=== PATIENT | female | born 1985 | race Hispanic/Latino ===

== ENCOUNTER 2019-03-15 14:43 | Emergency (ER) | payer BC ==
--- NOTE | 2019-03-15 15:06 | EDPHYS ---
Physician Documentation [facility] Name: Neris Ferguson Age: 33 yrs Sex: Female : 1985 Arrival Date: 03/15/2019 Time: 14:45 Bed 17 Private MD: Melissa Reyna K ED Physician Lonnie Coronel HPI: 03/15 15:02 This 33 yrs old Female presents to ER via Ambulatory with complaints of Ear jr8 Pain, Congestion. 15:02 The patient presents with pain, that is acute. The complaints affect the left ear. jr8 Onset: The symptoms/episode began/occurred today. Modifying factors: The symptoms are alleviated by nothing, the symptoms are aggravated by nothing. Associated signs and symptoms: The patient has no apparent associated signs or symptoms. Severity of symptoms: At their worst the symptoms were mild. The patient has experienced a previous episode. Pt reports URI sx for the last few days with fevers, today began having left ear pain. . 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 - Social history:: Smoking status: Patient/guardian denies using tobacco. - Ebola Screening: : Patient denies exposure to infectious person Patient denies travel to an Ebola-affected area in the 21 days before illness onset. ROS: 15:03 Constitutional: Negative for fever, chills, and weight loss, Eyes: Negative for injury, jr8 pain, redness, and discharge, Neck: Negative for injury, pain, and swelling, Cardiovascular: Negative for chest pain, palpitations, and edema, Respiratory: Negative for shortness of breath, cough, wheezing, and pleuritic chest pain, Abdomen/GI: Negative for abdominal pain, nausea, vomiting, diarrhea, and constipation, Back: Negative for injury and pain, MS/Extremity: Negative for injury and deformity, Neuro: Negative for headache, weakness, numbness, tingling, and seizure. 15:03 ENT: Positive for ear pain. Exam: 15:03 Constitutional: This is a well developed, well nourished patient who is awake, alert, jr8 and in no acute distress. Head/Face: Normocephalic, atraumatic. Eyes: Pupils equal round and reactive to light, extra-ocular motions intact. Lids and lashes normal. Conjunctiva and sclera are non-icteric and not injected. Cornea within normal limits. Periorbital areas with no swelling, redness, or edema. Neck: Trachea midline, no thyromegaly or masses palpated, and no cervical lymphadenopathy. Supple, full range of motion without nuchal rigidity, or vertebral point tenderness. No Meningismus. Chest/axilla: Normal chest wall appearance and motion. Nontender with no deformity. No lesions are appreciated. Cardiovascular: Regular rate and rhythm with a normal S1 and S2. No gallops, murmurs, or rubs. Normal PMI, no JVD. No pulse deficits. Respiratory: Lungs have equal breath sounds bilaterally, clear to auscultation and percussion. No rales, rhonchi or wheezes noted. No increased work of breathing, no retractions or nasal flaring. Abdomen/GI: Soft, non-tender, with normal bowel sounds. No distension or tympany. No guarding or rebound. No evidence of tenderness throughout. Back: No spinal tenderness. No costovertebral tenderness. Full range of motion. MS/ Extremity: Pulses equal, no cyanosis. Neurovascular intact. Full, normal range of motion. Neuro: Awake and alert, GCS 15, oriented to person, place, time, and situation. Cranial nerves II-XII grossly intact. Motor strength 5/5 in all extremities. Sensory grossly intact. Cerebellar exam normal. Normal gait. 15:03 ENT: TM's: bulging, erythema, on the left, Nose: is normal, Mouth: is normal, Posterior pharynx: is normal, Tonsils: are normal in appearance, Uvula: normal, swelling, is not appreciated, erythema, is not appreciated. Vital Signs: 14:54 BP 127 / 72; Pulse 83; Resp 16; Temp 98.7(TE); Pulse Ox 100% on R/A; Weight 103.42 kg; ss Height 5 ft. 5 in. (165.10 cm); Pain 10/10; 14:54 Body Mass Index 37.94 (103.42 kg, 165.10 cm) MDM: 14:49 Patient medically screened. jr8 15:04 Data reviewed: vital signs, nurses notes, and as a result, I will discharge patient. jr8 Data interpreted: Pulse oximetry: on room air is 100 %. Interpretation: normal. Counseling: I had a detailed discussion with the patient and/or guardian regarding: the historical points, exam findings, and any diagnostic results supporting the discharge/admit diagnosis. Administered Medications: No medications were administered Disposition: 15:40 Co-signature as Attending Physician, Lonnie Coronel MD. Disposition: 03/15/19 15:05 Discharged to Home. Impression: Acute serous otitis media. - Condition is Stable. - Prescriptions for Amoxicillin 875 mg Oral Tablet - take 1 tablet by ORAL route every 12 hours for 10 days; 20 tablet. - Medication Reconciliation Form, Thank You Letter, Antibiotic Education form. - Follow up: Private Physician; When: 2 - 3 days; Reason: Recheck today's complaints, Re-evaluation by your physician. - Problem is new. - Symptoms have improved. Signatures: Briana Perry RN RN Ralph Reyes PA PA jr8 Lonnie Coronel MD MD Kevin Rodriguez RN RN mg2 Corrections: (The following items were deleted from the chart) 15:14 15:05 03/15/2019 15:05 Discharged to Home. Impression: Acute serous otitis media. mg2 Condition is Stable. Forms are Medication Reconciliation Form, Thank You Letter, Antibiotic Education, Prescription Opioid Use. Follow up: Private Physician; When: 2 - 3 days; Reason: Recheck today's complaints, Re-evaluation by your physician. Problem is new. Symptoms have improved. jr8
--- NOTE | 2019-03-15 15:06 | ER ---
Nurse's Notes [facility] Name: Neris Ferguson Age: 33 yrs Sex: Female : 1985 Arrival Date: 03/15/2019 Time: 14:45 Bed 17 Private MD: Melissa Reyna K Diagnosis: Acute serous otitis media Presentation: 03/15 14:52 Presenting complaint: Patient states: congestion and L ear pain x 5 days. Denies fever/ ss cough. Transition of care: patient was not received from another setting of care. Onset of symptoms was March 09, 2019. Risk Assessment: Do you want to hurt yourself or someone else? Patient reports no desire to harm self or others. Initial Sepsis Screen: Does the patient meet any 2 criteria? No. Patient's initial sepsis screen is negative. Does the patient have a suspected source of infection? No. Patient's initial sepsis screen is negative. Care prior to arrival: None. 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 - Social history:: Smoking status: Patient/guardian denies using tobacco. - Ebola Screening: : Patient denies exposure to infectious person Patient denies travel to an Ebola-affected area in the 21 days before illness onset. Screenin:13 Abuse screen: Denies threats or abuse. Denies injuries from another. Nutritional mg2 screening: No deficits noted. Tuberculosis screening: No symptoms or risk factors identified. Fall Risk None identified. Assessment: 15:12 General: Appears in no apparent distress. comfortable, Behavior is calm, cooperative. mg2 Pain: Complains of pain in left ear Pain does not radiate. Neuro: Level of Consciousness is awake, alert, obeys commands, Oriented to person, place, time, situation. Cardiovascular: Capillary refill < 3 seconds Patient's skin is warm and dry. Respiratory: Reports nasal congestion Airway is patent Respiratory effort is even, unlabored, Respiratory pattern is regular, symmetrical. GI: No signs and/or symptoms were reported involving the gastrointestinal system. : No signs and/or symptoms were reported regarding the genitourinary system. EENT: Reports left ear pain. Derm: Skin is intact, is healthy with good turgor, Skin is pink, warm \T\ dry. normal. Musculoskeletal: Circulation, motion, and sensation intact. Capillary refill < 3 seconds. Vital Signs: 14:54 BP 127 / 72; Pulse 83; Resp 16; Temp 98.7(TE); Pulse Ox 100% on R/A; Weight 103.42 kg; ss Height 5 ft. 5 in. (165.10 cm); Pain 10/10; 14:54 Body Mass Index 37.94 (103.42 kg, 165.10 cm) ED Course: 14:45 Patient arrived in ED. as 14:45 Melissa Reyna MD is Private Physician. as 14:46 [facility]. jr8 14:46 Lonnie Coronel MD is Attending Physician. jr8 14:49 Kevin Rodriguez, KJ is Primary Nurse. mg2 14:53 Triage completed. ss 14:54 Arm band placed on right wrist. ss 15:13 Patient has correct armband on for positive identification. mg2 15:13 No provider procedures requiring assistance completed. Patient did not have IV access mg2 during this emergency room visit. Administered Medications: No medications were administered Outcome: 15:05 Discharge ordered by . jr8 15:14 Discharged to home ambulatory. mg2 15:14 Condition: stable 15:14 Discharge instructions given to patient, Instructed on discharge instructions, follow up and referral plans. medication usage, Demonstrated understanding of instructions, follow-up care, medications, Prescriptions given X 1. 15:14 Patient left the ED. mg2 Signatures: Adela Thomson Shelby, RN RN Ralph Reyes PA PA jr Kevin Rodriguez RN RN mg2
[2019-03-15 15:58] VITALS: BP 127/72; TEMP 98.7; O2SAT 100
== END 2019-03-15 15:14 | disposition home or self-care (01) ==
LOC: ER 14:43
DX: H65.00 Acute serous otitis media, unspecified ear (principal)
CPT/HCPCS: 99282

== ENCOUNTER 2022-06-09 18:48 | Emergency (ER) | payer OTHER ==
--- OUTSIDE RECORDS SUMMARY | 2022-06-09 18:53 | XMS REPORT | Continuity of Care Document ---
:1985 Author Organization [facility] t Address [address] [place] [address] Care Team Providers Name Role Phone STEVEN ALLISON Primary Care Physician Unavailable ERI NEAL Attending Clinician Unavailable Eri Neal MD Attending Clinician Doctor Unassigned, Independence Attending Clinician Unavailable EKHAESE, OBONORUMA IMARIA Attending Clinician Unavailable Ekhaese, Obonoruma Imariabe Attending Clinician EKHAESE, OBONORUMA IMARIA Admitting Clinician Unavailable Ekhaese, Obonoruma Imariabe Admitting Clinician [phone] Payers Payer Name Policy Type Policy Number Effective Date [facility] Date [id number] 2014 00:00:00 OUT OF STATE Problems Condition Condition Condition Status Onset Resolution Last Treating Co mments Source Name Details Category Date Date Treatment Clinician Date E66.01 E66.01 Diagnosis Active 2020-02-19 Me moria GASTRIC GASTRIC 01-06 09:11:00 l SLEEVE SLEEVE 00:00: [place] Active 00 01/07/2020 [place] UNK UNK Diagnosis Active 2020-01-16 Mem oria Active 01-06 14:01:00 l 01/07/2020 00:00: Garrett cervantes 00 [place] GASTRIC GASTRIC Diagnosis Active 2020-01-16 Memoria SLEEVE_ SLEEVE_ 8- 14:09:00 l Active 00:00: [place] 01/07/2020 00 [facility] E66.01 E66.01 Diagnosis Active 2019-10-31 Me moria Active 10-23 08:35:00 l 10/24/2019 00:00: Garrett cervantes 00 [facility] Abdominal Abdominal Disease Active Overview: Univers pain, pain, 6-07 Requested ity of other other 00:00: a pelvic [place] specified specified 00 ultrasoun M edical site site d Branch Gastroesop Gastroeso Problem Active 2020-01-23 Memoria hageal phageal 21:23:33 l reflux reflux Scout disease disease (disorder) (disorder) Active Problem 01/23/2020 [facility] Headache Headache Problem Active 2020-01-23 Memoria (finding) (finding) 21:23:33 l Active [place] Problem 01/23/2020 [facility] Morbid Morbid Problem Active 2020-01-23 Forrest karissa obesity obesity 21:23:33 l (disorder) (disorder) He rmann Active Problem 01/23/2020 [facility] Neck pain Neck pain Problem Active 2020-01-23 Memoria (finding) (finding) 21:23:33 l Active [place] Problem 01/23/2020 [facility] Sleep Sleep Problem Active 2020-01-23 Memor ia apnea apnea 21:23:33 l (finding) (finding) Herm jimmy Active Problem 01/23/2020 [facility] MORBID MORBID Diagnosis Active 2020-02-19 Me rosa (SEVERE) (SEVERE) 09:11:00 l OBESITY OBESITY Scout DUE TO DUE TO EXCESS CA EXCESS CA Active [facility] Morbid Morbid Problem 2020-01-23 Forrest karissa (severe) (severe) 21:23:33 l obesity obesity [place] due to due to excess excess calories calories 01/23/2020 [facility] Acute Acute Problem Resolve 2020-01-23 Forrest karissa asthma asthma d 21:23:33 l (disorder) (disorder) He rmann Resolved Problem 01/23/2020 [facility] Urinary Urinary Problem Active Common frequency frequency Spir it - [facility] Other Other Problem Active Common obesity obesity Spirit due to due to - [facility] excess excess St calories calories [facility] Well woman Well woman Problem Active C ommon exam with exam with Spir it routine routine - [facility]I gynecologi gynecologi St binh exam binh exam [facility] Acute Acute Problem Active Common vaginitis vaginitis Spir it - [facility] Abdominal Abdominal Problem Active Com mon pain, pain, Spirit unspecifie unspecifie - [facility] d d abdominal abdominal [facility] location location [facility] BMI BMI Problem Active Common 40.0-44.9, 40.0-44.9, Sp zachery adult adult [facility] Pelvic Pelvic Problem Active Common pain pain [facility] Allergies, Adverse Reactions, Alerts Allergy Allergy Status Severity Reaction(s) Onset Inactive Treating Comm ents Source Name Type Date Date Clinician NO KNOWN Drug Active Univers ALLERGIE Class ity of S [facility] Social History Social Habit Start Date Stop Date Quantity Comments Source Sex Assigned At [facility] y of [facility] Exposure to Not sure [facility] SARS-CoV-2 [facility] (event) Branch Tobacco use and 2020-07-09 2020-07-09 Never used Universit y of exposure 00:00:00 00:00:00 [facility] Alcohol intake 2020-07-09 2020-07-09 Current [facility] 00:00:00 00:00:00 non-drinker of [facility] alcohol Branch (finding) Social History 2020-01-20 2020-01-20 [facility] elizabeth 20:43:11 20:43:11 Smoking Status Start Date Stop Date Source Never smoker [facility] Medications Ordered Filled Start Stop Current Ordering Indication Dosage Frequency Signature Comments Components Source Medication Medication Date Date Medication? Clinician (SIG) Name Name Lactated 2019- No 1,000 mL, Forrest karissa Ringers 8-26 Rate: 80 l Injection 18:00: ml/hr, Garrett n IV 1,000 mL 00 Infuse over: 12.5 hr, Route: IV, Dosing Weight 113.273 kg, Total Volume: 1,000, Start date: 01/21/20 13:00:00 CDT, Duration: 30 day, Stop date: 02/20/20 12:59:00 CDT, 2.32, m2, 0 Lactated 2019- No 1,000 mL, Forrest karissa Ringers 8-26 Rate: 80 l Injection 18:00: ml/hr, Garrett n IV 1,000 mL 00 Infuse over: 12.5 hr, Route: IV, Dosing Weight 113.273 kg, Total Volume: 1,000, Start date: 01/21/20 13:00:00 CDT, Duration: 30 day, Stop date: 02/20/20 12:59:00 CDT, 2.32, m2, 0 Ondansetron 2020-0 Yes 4 mg = 1 Me moria 4 MG Oral 8-26 tab, PO, l Tablet 13:09: BID, # 10 Garrett n [Zofran] 00 tab, 0 Refill(s), Pharmacy: [id number], 165.1, cm, 01/20/20 15:41:00 CDT, Height, 109.545, kg, 01/20/20 15:41:00 CDT, Weight Ketorolac 2020-0 Yes 10 mg = 1 Mem oria Tromethamin 8-26 tab, PO, l e 10 MG 13:09: Q6H, X 5 Garrett n Oral Tablet 00 day, # 20 tab, 0 Refill(s), Pharmacy: [facility] #[id number], 165.1, cm, 01/20/20 15:41:00 CDT, Height, 109.545, kg, 01/20/20 15:41:00 CDT, Weight gabapentin 2020-0 Yes 100 mg = 1 M emoria 100 MG Oral 8-26 cap, PO, l Capsule 13:09: BID, PRN Garrett n 00 Pain Score 4-6, # 60 cap, 1 Refill(s), Pharmacy: [facility] #[id number], 165.1, cm, 01/20/20 15:41:00 CDT, Height, 109.545, kg, 01/20/20 15:41:00 CDT, Weight Ondansetron 2020-0 Yes 4 mg = 1 Me moria 4 MG Oral 8-26 tab, PO, l Tablet 13:09: BID, # 10 Garrett n [Zofran] 00 tab, 0 Refill(s), Pharmacy: [facility] #[id number], 165.1, cm, 01/20/20 15:41:00 CDT, Height, 109.545, kg, 01/20/20 15:41:00 CDT, Weight Ketorolac 2020-0 Yes 10 mg = 1 Mem oria Tromethamin 8-26 tab, PO, l e 10 MG 13:09: Q6H, X 5 Garrett n Oral Tablet 00 day, # 20 tab, 0 Refill(s), Pharmacy: [facility] #[id number], 165.1, cm, 01/20/20 15:41:00 CDT, Height, 109.545, kg, 01/20/20 15:41:00 CDT, Weight gabapentin Yes 100 mg = 1 M emoria 100 MG Oral 8- cap, PO, l Capsule 13:09: BID, PRN Garrett n 00 Pain Score 4-6, # 60 cap, 1 Refill(s), Pharmacy: [facility] #[id number], 165.1, cm, 01/20/20 15:41:00 CDT, Height, 109.545, kg, 01/20/20 15:41:00 CDT, Weight gabapentin No Notes: Memor ia - (Same as: l 18:00: Neurontin) [place] 00 Ketorolac 2019-0 Yes 4 days Memor ia 01-19 l 18:00: MEDICATION Scout 00 WASTE Product Size: 30 mg Product Wasted: ___ mg gabapentin 0 No Notes: Memor ia - (Same as: l 18:00: Neurontin) [place] 00 Ketorolac 2019-0 Yes 4 days Memor ia - l 18:00: MEDICATION Scout 00 WASTE Product Size: 30 mg Product Wasted: ___ mg Calcium 0 No 1,000 mL, Memor ia Chloride 01-19 Rate: 125 l 0.0014 17:51: ml/hr, Scout MEQ/ML / 00 Infuse Potassium over: 8 Chloride hr, Route: 0.004 IV, Dosing MEQ/ML / Weight Sodium 113.273 Chloride kg, Total 0.103 Volume: MEQ/ML / 1,000, Sodium Start Lactate date: 0.028 01/20/20 MEQ/ML 12:51:00 Injectable CDT, Stop Solution date: 01/21/20 12:59:00 CDT, 2.32, m2, 0 Acetaminoph 0 No Notes: Max Memoria en - acetaminop l 17:51: hen = 4000 Scout 00 mg/day (4 gm/day). (Same as: Tylenol) Hydromorpho No Notes: Forrest karissa ne 8-25 (Same as: l 17:51: Dilaudid) Ondansetron No Notes: Forrest karissa 8-25 (Same as: l 17:51: Zofran) [place] 00 MEDICATION WASTE Product Size: 4 mg Product Wasted: ___ mg Promethazin No Notes: Forrest karissa e 8-25 (Same as: l 17:51: Phenergan) [place] Calcium 2019-0 No 1,000 mL, Memor ia Chloride 01-19 Rate: 125 l 0.0014 17:51: ml/hr, [place] MEQ/ML / 00 Infuse Potassium over: 8 Chloride hr, Route: 0.004 IV, Dosing MEQ/ML / Weight Sodium 113.273 Chloride kg, Total 0.103 Volume: MEQ/ML / 1,000, Sodium Start Lactate date: 0.028 01/20/20 MEQ/ML 12:51:00 Injectable CDT, Stop Solution date: 01/21/20 12:59:00 CDT, 2.32, m2, 0 Acetaminoph No Notes: Max Memoria en 8-25 acetaminop l 17:51: hen = 4000 [place] 00 mg/day (4 gm/day). (Same as: Tylenol) Hydromorpho No Notes: Forrest karissa ne 8-25 (Same as: l 17:51: Dilaudid) Ondansetron No Notes: Forrest karissa 8-25 (Same as: l 17:51: Zofran) [place] 00 MEDICATION WASTE Product Size: 4 mg Product Wasted: ___ mg Promethazin 0 No Notes: Forrest karissa e 8-25 (Same as: l 17:51: Phenergan) Sodium 2019-0 No 984.8 mL, Memori a Chloride 825 Rate: 100 l 0.9% IV 17:49: ml/hr, Scout 984.8 mL + 00 Infuse M.V.I.-12 over: 10 10 mL Daily hr, Route: + folic IV, Dosing acid IV 1 Weight mg Daily + 113.273 thiamine IV kg, Total 5 Volume: 1,000, Start date: 01/20/20 12:49:00 CDT, Duration: 10 hr, Stop date: 01/20/20 22:48:00 CDT, 2.32, m2, 0 Sodium 2020-0 No 984.8 mL, Memori a Chloride 01-19 Rate: 100 l 0.9% IV 17:49: ml/hr, [place] 984.8 mL + 00 Infuse M.V.I.-12 over: 10 10 mL Daily hr, Route: + folic IV, Dosing acid IV 1 Weight mg Daily + 113.273 thiamine IV kg, Total 5 Volume: 1,000, Start date: 01/20/20 12:49:00 CDT, Duration: 10 hr, Stop date: 01/20/20 22:48:00 CDT, 2.32, m2, 0 72 HR 2020-0 No 1 patch, Memoria Scopolamine 01-19 Route: l 0.0139 16:14: TOP, Drug Garrett n MG/HR 00 Form: Transdermal ERFILM, Patch Dosing Weight 113.273, kg, ONCE, Start date: 01/20/20 11:14:00 CDT, Stop date: 01/20/20 11:14:00 CDT 72 HR 2020-0 No 1 patch, Memoria Scopolamine 01-19 Route: l 0.0139 16:14: TOP, Drug Garrett n MG/HR 00 Form: Transdermal ERFILM, Patch Dosing Weight 113.273, kg, ONCE, Start date: 01/20/20 11:14:00 CDT, Stop date: 01/20/20 11:14:00 CDT Lactated 2020-0 No 1,000 ml, Forrest karissa Ringers IV 01-19 Rate: 25 l 1,000 ml 16:03: ml/hr, [place] 00 Infuse over: 40 hr, Route: IV, Dosing Weight 113.273 kg, Total Volume: 1,000, Start date: 01/20/20 11:03:00 CDT, Duration: 30 day, Stop date: 02/19/20 11:02:00 CDT, 2.32, m2 Lactated 2020-0 No 1,000 ml, Forrest karissa Ringers IV 01-19 Rate: 25 l 1,000 ml 16:03: ml/hr, [place] 00 Infuse over: 40 hr, Route: IV, Dosing Weight 113.273 kg, Total Volume: 1,000, Start date: 01/20/20 11:03:00 CDT, Duration: 30 day, Stop date: 02/19/20 11:02:00 CDT, 2.32, m2 Calcium 2020-0 No 1,000 mL, Memor ia Chloride 8-24 Rate: 75 l 0.0014 22:32: ml/hr, Scout MEQ/ML / 00 Infuse Potassium over: 13.3 Chloride hr, Route: 0.004 IV, Dosing MEQ/ML / Weight Sodium 113.273 Chloride kg, Total 0.103 Volume: MEQ/ML / 1,000, Sodium Start Lactate date: 0.028 01/19/20 MEQ/ML 17:32:00 Injectable CDT, Solution Duration: 30 day, Stop date: 02/18/20 17:31:00 CDT, 2.32, m2 Fentanyl 2020-0 No 25 Memoria 8-24 microgram, l 22:32: Route: Scout 00 IVP, Q5Min, Dosing Weight 113.273, kg, PRN Pain Score 4-6, Priority: Routine, Start date: 01/19/20 17:32:00 CDT, Duration: 4 doses or times, Stop date: Limited # of times Flumazenil 2020-0 No 0.2 mg, Forrest karissa 8-24 Route: l 22:32: IVP, PRN, Dosing Weight 113.273, kg, PRN Benzodiaze pine Reversal, Initial dose, Start date: 01/19/20 17:32:00 CDT, Duration: 30 day, Stop date: 02/18/20 17:31:00 CDT Naloxone 2020-0 No 0.4 mg, Memori a 8-24 Route: l 22:32: IVP, Scout 00 Q2MIN, Dosing Weight 113.273, kg, PRN Narcotic Reversal, Start date: 01/19/20 17:32:00 CDT, Duration: 8 doses or times, Stop date: Limited # of times Ondansetron 2020-0 No 4 mg, Memor ia 8-24 Route: l 22:32: IVP, ONCE, Scout 00 Dosing Weight 113.273, kg, PRN Nausea & Vomiting, Start date: 01/19/20 17:32:00 CDT Calcium 2020-0 No 1,000 mL, Memor ia Chloride 8-24 Rate: 75 l 0.0014 22:32: ml/hr, Scout MEQ/ML / 00 Infuse Potassium over: 13.3 Chloride hr, Route: 0.004 IV, Dosing MEQ/ML / Weight Sodium 113.273 Chloride kg, Total 0.103 Volume: MEQ/ML / 1,000, Sodium Start Lactate date: 0.028 01/19/20 MEQ/ML 17:32:00 Injectable CDT, Solution Duration: 30 day, Stop date: 02/18/20 17:31:00 CDT, 2.32, m2 Fentanyl 2020-0 No 25 Memoria 8-24 microgram, l 22:32: Route: IVP, Q5Min, Dosing Weight 113.273, kg, PRN Pain Score 4-6, Priority: Routine, Start date: 01/19/20 17:32:00 CDT, Duration: 4 doses or times, Stop date: Limited # of times Flumazenil 2020-0 No 0.2 mg, Forrest karissa 824 Route: l 22:32: IVP, PRN, Dosing Weight 113.273, kg, PRN Benzodiaze pine Reversal, Initial dose, Start date: 01/19/20 17:32:00 CDT, Duration: 30 day, Stop date: 02/18/20 17:31:00 CDT Naloxone 2020-0 No 0.4 mg, Memori a 8-24 Route: l 22:32: IVP, Q2MIN, Dosing Weight 113.273, kg, PRN Narcotic Reversal, Start date: 01/19/20 17:32:00 CDT, Duration: 8 doses or times, Stop date: Limited # of times Ondansetron 2020-0 No 4 mg, Memor ia 8-24 Route: l 22:32: IVP, ONCE, Dosing Weight 113.273, kg, PRN Nausea & Vomiting, Start date: 01/19/20 17:32:00 CDT One-A-Day 2020-0 Yes 1 tab, PO, Me moria Women oral 8-21 Daily, # l tablet 23:05: 30 tab, 0 Garrett n 00 Refill(s) One-A-Day 2019-0 Yes 1 tab, PO, Me moria Women oral 8-21 Daily, # l tablet 23:05: 30 tab, 0 Garrett n 00 Refill(s) Womens One Womens One Yes Kate not Co mmon Daily Daily Trevor defined Spirit [facility] No known No [facility] No known No [facility] No known No Univers medications [facility] Immunizations Ordered Filled Immunization Date Status Comments [facility] e Immunization Name Name TD 2012-11-01 Completed University of 00:00:00 [facility] 2012-11-01 Completed [facility] 2012[facility]01 Completed University of 00:00:00 [facility] Influenza Virus 2010-06-11 Completed Universit y of Vaccine 00:00:00 [facility] Influenza Virus 2010-06-11 Completed Universit y of Vaccine 00:00:00 [facility] Influenza Virus 2010-06-11 Completed Universit y of Vaccine 00:00:00 [facility] Rubella 2010-02-16 Completed University of 00:00:00 [facility] Rubella 2010-02-16 Completed University of 00:00:00 [facility] Rubella 2010-02-16 Completed University of 00:00:00 [facility] Td 1999-05-28 Completed University of 00:00:00 [facility] Td 1999-05-28 Completed University of 00:00:00 [facility] Td 1999-05-28 Completed University of 00:00:00 [facility] Vital Signs Vital Name Observation Time Observation Value Comments Source Systolic blood 2020-07-09 17:27:00 123 mm[Hg] Univer sity of pressure [facility] Diastolic blood 2020-07-09 17:27:00 76 mm[Hg] Unive rsity of pressure [facility] Heart rate 2020-07-09 17:27:00 68 /min [facility] Body temperature 2020-07-09 17:27:00 36.78 Kenzie [facility] Respiratory rate 2020-07-09 17:27:00 18 /min [facility] Body height 2020-07-09 17:27:00 165.1 cm [facility] Body weight 2020-07-09 17:27:00 80.922 kg [facility] BMI 2020-07-09 17:27:00 29.69 kg/m2 [facility] Temperature Oral (F) 2020-01-21 04:47:00 98.0 F [facility] Heart Rate 2020-01-21 04:47:00 [facility] [place] Respitory Rate 2020-01-21 04:47:00 Memori al [place] Systolic (mm Hg) 2020-01-21 04:47:00 Forrest rial [place] Diastolic (mm Hg) 2020-01-21 04:47:00 Mem orial [place] Systolic (mm Hg) 2020-01-20 20:50:00 Forrest rial [place] Diastolic (mm Hg) 2020-01-20 20:50:00 Mem orial [place] Heart Rate 2020-01-20 20:50:00 [facility] [place] Respitory Rate 2020-01-20 20:50:00 Memori al [place] Height 2020-01-20 20:41:00 165.1 cm [facility] [place] Weight 2020-01-20 20:41:00 [facility] [place] BMI Calculated 2020-01-20 20:41:00 Memori al [place] Systolic (mm Hg) 2020-01-20 20:31:00 Forrest rial [place] Diastolic (mm Hg) 2020-01-20 20:31:00 Mem orial [place] Respitory Rate 2020-01-20 20:31:00 Memori al [place] Heart Rate 2020-01-20 20:31:00 [facility] Temperature Oral (F) 2020-01-20 19:20:00 97.7 F [facility] Height 2020-01-16 19:17:00 165.1 cm [facility] [place] Weight 2020-01-16 19:17:00 [facility] [place] BMI Calculated 2020-01-16 19:17:00 Memori al [place] Procedures Procedure Date / Time Performing Source Performed Clinician CONSENT/REFUSAL FOR DIAGNOSIS AND 2020-07-09 [facility] 16:39:40 Unassigned, No [facility] ASSIGNMENT OF BENEFITS 2020-07-09 Doctor [facility] 16:39:19 Unassigned, No [facility] section [facility] Esophagogastroduodenoscopy Memor ial [place] Encounters Start End Encounter Admission Attending Care Care Encounter Source Date/Time Date/Time Type Type Clinicians Facility Department ID 2022-04-26 Outpatient [facility] [id number] Common 09:17:00 [id number] [facility] 2022-04-03 Outpatient [facility] [id number] Common 11:37:00 [facility] 2021-07-12 2021-07-12 Outpatient R ADUM, [facility] [id number] Univers 10:00:00 10:00:00 ERI ity [facility] 2020-07-09 2020-07-09 Office Adum, [facility] [id number] Univers 10:40:14 12:15:41 Visit Eri Young [id number] ity [facility] [id number] Berenice bond Professio [phone] Mi dical [address] 2020-07-09 2020-07-09 Outpatient R ADUM, [facility] [id number] Univers 10:30:00 10:30:00 ERI gonzalez [facility] 2020-07-09 2020-07-09 Orders Doctor MILTON [id number] Univers 00:00:00 00:00:00 Only Unassigned, CHER [id number] ity [id number] Denilson as [id number] [address] 2020-01-20 2020-01-21 Inpatient [facility] [id number] Memoria 15:16:00 14:50:00 r Scout 01 [facility] 2020-01-20 2020-01-21 Inpatient [facility] [id number] Memoria 15:16:00 14:50:00 r Scout [address] [facility] 2020-01-20 2020-01-21 Inpatient CAROLA STAFFORD JOHANA [id number] 10:16:00 09:50:00 OBONORUMA Sout hea [facility] 2020-01-20 2020-01-21 Outpatient CAROLA Stafford [facility] [id number] 10:16:00 09:50:00 Obonor[place] 01 Imariabe 2020-01-20 2020-01-20 Outpatient CAROLA Stafford [id number] 12:00:00 12:00:00 [place] 01 Imariabe 2018-10-02 2018-10-02 Outpatient [facility] [id number] Common 09:45:00 09:45:00 t Specialty/U Sp zachery Specialty rology - [facility] 2018-06-05 2018-06-05 Outpatient [facility] [id number] Common 11:30:00 11:30:00 t [facility] 2017-10-23 2017-10-23 Outpatient [facility] [id number] Common 10:00:00 10:00:00 t [facility] - [facility] 2017-10-11 2017-10-11 Outpatient NICOLÁS MONZON [id number] Memoria 15:45:00 15:45:00 00 alex [place] 2017-10-11 2017-10-11 Outpatient NICOLÁS MONZON [id number] Memoria 15:45:00 15:45:00 00 alex [place] Results Test Description Test Time Test Comments Results Result Comments Source CHEM PANEL 2020-01-21 09:49:00 Test Item Value Reference Range Interpretation Comme nts eGFR (test code = eGFR) 123 [id number] 09:49:00 Test Item Value Reference Range Interpretation Comments WBC (test code = WBC) 11.5 3.7-10.4 [facility] [id number] 09:49:00 Test Item Value Reference Range Interpretation Comments RBC (test code = RBC) 4.29 4.20-5.40 [facility] [id number] 09:49:00 Test Item Value Reference Range Interpretation Comments Hgb (test code = Hgb) 11.5 12.0-16.0 [facility] [id number] 09:49:00 Test Item Value Reference Range Interpretation Comments Hct (test code = Hct) 34.5 36.0-48.0 [place] [id number] 09:49:00 Test Item Value Reference Range Interpretation Comments MCV (test code = MCV) 80.4 80.0-98.0 [place] [id number] 09:49:00 Test Item Value Reference Range Interpretation Comments MCH (test code = MCH) 26.7 pg 27.0-31.0 [place] [id number] 09:49:00 Test Item Value Reference Range Interpretation Comments MCHC (test code = MCHC) 33.3 32.0-36.0 [place] 27428-08-26 09:49:00 Test Item Value Reference Range Interpretation Comments RDW (test code = RDW) 15.6 11.5-14.5 [place] 27428-08-26 09:49:00 Test Item Value Reference Range Interpretation Comments Platelet (test code = Platelet) 310 133-450 [facility] [id number] 09:49:00 Test Item Value Reference Range Interpretation Comments MPV (test code = MPV) 7.1 7.4-10.4 [place] [id number] 09:49:00 Test Item Value Reference Range Interpretation Comments Segs (test code = Segs) 83.2 45.0-75.0 [place] [id number] 09:49:00 Test Item Value Reference Range Interpretation Comments Lymphocytes (test code = Lymphocytes) 11.5 20.0-40.0 [place] [id number] 09:49:00 Test Item Value Reference Range Interpretation Comments Monocytes (test code = Monocytes) 5.2 2.0-12.0 [place] 27428-08-26 09:49:00 Test Item Value Reference Range Interpretation Comments Basophils (test code = 0.1 See_Comment [Aut omated message] The Basophils) system which ge nerated this result tra nsmitted reference range : <=1.0. The reference r alvin was not used to int erpret this result as normal/abnormal . [place] [id number] 09:49:00 Test Item Value Reference Range Interpretation Comments Neutrophils # (test code = Neutrophils 9.5 1.5-8.1 #) [facility] [id number] 09:49:00 Test Item Value Reference Range Interpretation Comments Lymphocytes # (test code = Lymphocytes 1.3 1.0-5.5 #) [id number] 09:49:00 Test Item Value Reference Range Interpretation Comments Monocytes # (test code 0.6 See_Comment [Aut omated message] The = Monocytes #) system which generated this result tra nsmitted reference range : <=0.8. The reference r alvin was not used to int erpret this result as normal/abnormal . [facility]2020-08-26 09:49:00 Test Item Value Reference Range Interpretation Comments Glucose Lvl (test code = Glucose Lvl) 103 70-99 [place] [id number] 09:49:00 Test Item Value Reference Range Interpretation Comments BUN (test code = BUN) 9 7-22 [place] [id number] 09:49:00 Test Item Value Reference Range Interpretation Comments Creatinine Lvl (test code = Creatinine 0.52 0.50-1.40 Lvl) [place] [id number] 09:49:00 Test Item Value Reference Range Interpretation Comments Sodium Lvl (test code = Sodium Lvl) 141 135-145 [place] [address]81-08-26 09:49:00 Test Item Value Reference Range Interpretation Comments Potassium Lvl (test code = Potassium 3.9 3.5-5.1 Lvl) [place] 76781-08-26 09:49:00 Test Item Value Reference Range Interpretation Comments Chloride Lvl (test code = Chloride Lvl) 110 95-109 [place] [id number] 09:49:00 Test Item Value Reference Range Interpretation Comments CO2 (test code = CO2) 23 24-32 [place] [id number] 09:49:00 Test Item Value Reference Range Interpretation Comments Calcium Lvl (test code = Calcium Lvl) 8.7 8.5-10.5 [place] 671470-08-26 09:49:00 Test Item Value Reference Range Interpretation Comments Total Protein (test code = Total 6.9 6.4-8.4 Protein) [place] 671470-08-26 09:49:00 Test Item Value Reference Range Interpretation Comments Albumin Lvl (test code = Albumin Lvl) 3.2 3.5-5.0 [facility] [employer] [id number] 09:49:00 Test Item Value Reference Range Interpretation Comments ALT (test code = ALT) 79 See_Comment [Auto mated message] The system which ge nerated this result transmit nicole reference range : <=65. The reference range was not used to interpr et this result as jonathan l/abnormal. [facility] [employer]2020-08-26 09:49:00 Test Item Value Reference Range Interpretation Comments AST (test code = AST) 59 See_Comment [Auto mated message] The system which ge nerated this result transmit nicole reference range : <=37. The reference range was not used to interpr et this result as jonathan l/abnormal. [employer]2020-08-26 09:49:00 Test Item Value Reference Range Interpretation Comments Alk Phos (test code = Alk Phos) 62 39-136 [facility] [employer] [id number] 09:49:00 Test Item Value Reference Range Interpretation Comments Bili Total (test code = Bili Total) 0.4 0.2-1.3 [facility] [employer]2020-08-26 09:49:00 Test Item Value Reference Range Interpretation Comments AGAP (test code = AGAP) 11.9 10.0-20.0 [employer]2020-08-26 09:49:00 Test Item Value Reference Range Interpretation Comments B/C Ratio (test code = B/C Ratio) 17 1 6-25 [facility] [employer]2020-08-26 09:49:00 Test Item Value Reference Range Interpretation Comments Globulin (test code = Globulin) 3.7 2.7-4.2 [facility] [employer]2020-08-26 09:49:00 Test Item Value Reference Range Interpretation Comments A/G Ratio (test code = A/G Ratio) 0.9 1 0.7-1.6 [employer]2020-08-26 09:49:00 Test Item Value Reference Range Interpretation Comments eGFR (test code = eGFR) 123 [facility] LvzlzlhEAGIWZKZTG5007-97-00 09:49:00 Test Item Value Reference Range Interpretation Comments WBC (test code = WBC) 11.5 3.7-10.4 [facility] KzjwpfqYAOZLEPWKR3050-04-54 09:49:00 Test Item Value Reference Range Interpretation Comments RBC (test code = RBC) 4.29 4.20-5.40 [place] 394800-08-26 09:49:00 Test Item Value Reference Range Interpretation Comments Hgb (test code = Hgb) 11.5 12.0-16.0 [place] [address]-08-26 09:49:00 Test Item Value Reference Range Interpretation Comments Hct (test code = Hct) 34.5 36.0-48.0 [facility] TaylorDmutrvzSTAULMXNGM2427-25-68 09:49:00 Test Item Value Reference Range Interpretation Comments MCV (test code = MCV) 80.4 80.0-98.0 [facility] TaylorFhcmcbbZLERDHCRXZ4583-30-25 09:49:00 Test Item Value Reference Range Interpretation Comments MCH (test code = MCH) 26.7 pg 27.0-31.0 [place] 394800-08-26 09:49:00 Test Item Value Reference Range Interpretation Comments MCHC (test code = MCHC) 33.3 32.0-36.0 [facility] TaylorBkxtmokWKSCABFJHS1025-43-09 09:49:00 Test Item Value Reference Range Interpretation Comments RDW (test code = RDW) 15.6 11.5-14.5 [facility] TaylorZvjbksnSAASLRGKRG8952-83-93 09:49:00 Test Item Value Reference Range Interpretation Comments Platelet (test code = Platelet) 310 133-450 [facility] TaylorYvkdmijYBVNIESYIT3314-06-29 09:49:00 Test Item Value Reference Range Interpretation Comments MPV (test code = MPV) 7.1 7.4-10.4 [place] 394800-08-26 09:49:00 Test Item Value Reference Range Interpretation Comments Segs (test code = Segs) 83.2 45.0-75.0 [place] 394800-08-26 09:49:00 Test Item Value Reference Range Interpretation Comments Lymphocytes (test code = Lymphocytes) 11.5 20.0-40.0 [place] [address]-08-26 09:49:00 Test Item Value Reference Range Interpretation Comments Monocytes (test code = Monocytes) 5.2 2.0-12.0 [place] [address]-08-26 09:49:00 Test Item Value Reference Range Interpretation Comments Basophils (test code = 0.1 See_Comment [Aut omated message] The Basophils) system which ge nerated this result tra nsmitted reference range : <=1.0. The reference r alvin was not used to int erpret this result as normal/abnormal . [place] 394800-08-26 09:49:00 Test Item Value Reference Range Interpretation Comments Neutrophils # (test code = Neutrophils 9.5 1.5-8.1 #) [place] 394800-08-26 09:49:00 Test Item Value Reference Range Interpretation Comments Lymphocytes # (test code = Lymphocytes 1.3 1.0-5.5 #) [place] [address]-08-26 09:49:00 Test Item Value Reference Range Interpretation Comments Monocytes # (test code 0.6 See_Comment [Aut omated message] The = Monocytes #) system which generated this result tra nsmitted reference range : <=0.8. The reference r alvin was not used to int erpret this result as normal/abnormal . [facility] [id number] 09:49:00 Test Item Value Reference Range Interpretation Comments Glucose Lvl (test code = Glucose Lvl) 103 70-99 [facility] [id number] 09:49:00 Test Item Value Reference Range Interpretation Comments BUN (test code = BUN) 9 7-22 [facility] [id number] 09:49:00 Test Item Value Reference Range Interpretation Comments Creatinine Lvl (test code = Creatinine 0.52 0.50-1.40 Lvl) [facility] [id number] 09:49:00 Test Item Value Reference Range Interpretation Comments Sodium Lvl (test code = Sodium Lvl) 141 135-145 [facility] [id number] 09:49:00 Test Item Value Reference Range Interpretation Comments Potassium Lvl (test code = Potassium 3.9 3.5-5.1 Lvl) [facility] [id number] 09:49:00 Test Item Value Reference Range Interpretation Comments Chloride Lvl (test code = Chloride Lvl) 110 95-109 [facility] [id number] 09:49:00 Test Item Value Reference Range Interpretation Comments CO2 (test code = CO2) 23 24-32 [facility] [id number] 09:49:00 Test Item Value Reference Range Interpretation Comments Calcium Lvl (test code = Calcium Lvl) 8.7 8.5-10.5 [facility] [id number] 09:49:00 Test Item Value Reference Range Interpretation Comments Total Protein (test code = Total 6.9 6.4-8.4 Protein) [facility] [id number] 09:49:00 Test Item Value Reference Range Interpretation Comments Albumin Lvl (test code = Albumin Lvl) 3.2 3.5-5.0 [facility] [id number] 09:49:00 Test Item Value Reference Range Interpretation Comments ALT (test code = ALT) 79 See_Comment [Auto mated message] The system which ge nerated this result transmit nicole reference range : <=65. The reference range was not used to interpr et this result as jonathan l/abnormal. [facility] [id number] 09:49:00 Test Item Value Reference Range Interpretation Comments AST (test code = AST) 59 See_Comment [Auto mated message] The system which ge nerated this result transmit nicole reference range : <=37. The reference range was not used to interpr et this result as jonathan l/abnormal. [facility] [employer] [id number] 09:49:00 Test Item Value Reference Range Interpretation Comments Alk Phos (test code = Alk Phos) 62 39-136 [facility] [id number] 09:49:00 Test Item Value Reference Range Interpretation Comments Bili Total (test code = Bili Total) 0.4 0.2-1.3 [facility] [id number] 09:49:00 Test Item Value Reference Range Interpretation Comments AGAP (test code = AGAP) 11.9 10.0-20.0 [facility] [employer] [id number] 09:49:00 Test Item Value Reference Range Interpretation Comments B/C Ratio (test code = B/C Ratio) 17 1 6-25 [facility] [id number] 09:49:00 Test Item Value Reference Range Interpretation Comments Globulin (test code = Globulin) 3.7 2.7-4.2 [facility] [employer] [id number] 09:49:00 Test Item Value Reference Range Interpretation Comments A/G Ratio (test code = A/G Ratio) 0.9 1 0.7-1.6 [facility]2020-08-25 15:22:00 Test Item Value Reference Range Interpretation Comments U Preg (test code = U Negative (01/20/20 10:22 Preg) AM) [facility]2020-08-25 15:22:00 Test Item Value Reference Range Interpretation Comments U Preg (test code = U Negative (01/20/20 10:22 Preg) AM) [facility] [id number] 19:55:00 Test Item Value Reference Range Interpretation Comments Neutrophils # (test code = Neutrophils 6.6 1.5-8.1 #) [facility] TaylorKdtsuhmCWXISIFQVT2396-76-47 19:55:00 Test Item Value Reference Range Interpretation Comments Lymphocytes # (test code = Lymphocytes 2.1 1.0-5.5 #) [facility] TaylorZtmskmcIAYQJFFXWG5235-62-01 19:55:00 Test Item Value Reference Range Interpretation Comments Monocytes # (test code 0.5 See_Comment [Aut omated message] The = Monocytes #) system which generated this result tra nsmitted reference range : <=0.8. The reference r alvin was not used to int erpret this result as normal/abnormal . [facility] [id number] 19:55:00 Test Item Value Reference Range Interpretation Comments Eosinophils # (test code 0.2 See_Comment [A utomated message] The = Eosinophils #) system whic h generated this result tra nsmitted reference range : <=0.5. The reference r alvin was not used to int erpret this result as normal/abnormal . [facility] TaylorMltclxaOYXSEAHYJB4523-22-73 19:55:00 Test Item Value Reference Range Interpretation Comments Basophils # (test code 0.1 See_Comment [Aut omated message] The = Basophils #) system which generated this result tra nsmitted reference range : <=0.2. The reference r alvin was not used to int erpret this result as normal/abnormal . [facility] HospitalMipiszkVSKBHYASAJ4926-18-12 19:55:00 Test Item Value Reference Range Interpretation Comments Coronavirus (COVID-19) Not Detected ARUN (test code = *NA*(01/16/20 2:55 PM) Coronavirus (COVID-19) ARUN) [facility] [id number] 19:55:00 Test Item Value Reference Range Interpretation Comments ABO/Rh (test code = ABO/Rh) B POS [facility] [employer] [facility] [id number] 19:55:00 Test Item Value Reference Range Interpretation Comments Antibody Scrn (test Negative (01/16/20 2:55 code = Antibody Scrn) PM) [facility] [id number] 19:55:00 Test Item Value Reference Range Interpretation Comments Glucose Lvl (test code = Glucose Lvl) 121 70-99 [facility] [id number] 19:55:00 Test Item Value Reference Range Interpretation Comments BUN (test code = BUN) 10 7-22 [facility] [id number] 19:55:00 Test Item Value Reference Range Interpretation Comments Creatinine Lvl (test code = Creatinine 0.62 0.50-1.40 Lvl) [facility] [id number] 19:55:00 Test Item Value Reference Range Interpretation Comments Sodium Lvl (test code = Sodium Lvl) 138 135-145 [facility] [id number] 19:55:00 Test Item Value Reference Range Interpretation Comments Potassium Lvl (test code = Potassium 3.5 3.5-5.1 Lvl) [facility] [id number] 19:55:00 Test Item Value Reference Range Interpretation Comments Chloride Lvl (test code = Chloride Lvl) 104 95-109 [facility] [id number] 19:55:00 Test Item Value Reference Range Interpretation Comments CO2 (test code = CO2) 27 24-32 [facility] [id number] 19:55:00 Test Item Value Reference Range Interpretation Comments Calcium Lvl (test code = Calcium Lvl) 8.9 8.5-10.5 [facility] [id number] 19:55:00 Test Item Value Reference Range Interpretation Comments AGAP (test code = AGAP) 10.5 10.0-20.0 [facility] [id number] 19:55:00 Test Item Value Reference Range Interpretation Comments eGFR (test code = eGFR) 116 [facility] TaylorXipxtctQOQSVMHUXC7827-53-53 19:55:00 Test Item Value Reference Range Interpretation Comments WBC (test code = WBC) 9.5 3.7-10.4 [facility] T[id number] 19:55:00 Test Item Value Reference Range Interpretation Comments RBC (test code = RBC) 4.69 4.20-5.40 [facility] [id number] 19:55:00 Test Item Value Reference Range Interpretation Comments Hgb (test code = Hgb) 12.3 12.0-16.0 [facility] TaylorSvimyvwSOSYWTTKZQ5469-27-16 19:55:00 Test Item Value Reference Range Interpretation Comments Hct (test code = Hct) 37.7 36.0-48.0 [facility] TaylorEezqqblESLAPWPQRI9851-41-51 19:55:00 Test Item Value Reference Range Interpretation Comments MCV (test code = MCV) 80.4 80.0-98.0 [facility] TaylorJfsghglMGCVBEVRDV6224-87-18 19:55:00 Test Item Value Reference Range Interpretation Comments MCH (test code = MCH) 26.2 pg 27.0-31.0 [facility] TaylorPnkezhlDMDAFKBLOE3831-10-68 19:55:00 Test Item Value Reference Range Interpretation Comments MCHC (test code = MCHC) 32.6 32.0-36.0 [facility] [id number] 19:55:00 Test Item Value Reference Range Interpretation Comments RDW (test code = RDW) 15.7 11.5-14.5 [facility] TaylorHhzxqxfAEVJRLSKWT7916-27-80 19:55:00 Test Item Value Reference Range Interpretation Comments Platelet (test code = Platelet) 308 133-450 [facility] TaylorMioumeoNEOKWFSGZS4515-18-05 19:55:00 Test Item Value Reference Range Interpretation Comments MPV (test code = MPV) 7.1 7.4-10.4 [place] 394800-08-21 19:55:00 Test Item Value Reference Range Interpretation Comments Segs (test code = Segs) 69.6 45.0-75.0 [place] 394800-08-21 19:55:00 Test Item Value Reference Range Interpretation Comments Lymphocytes (test code = Lymphocytes) 22.4 20.0-40.0 [facility] TaylorEhbpsnaEGVYPZIFBQ3296-12-85 19:55:00 Test Item Value Reference Range Interpretation Comments Monocytes (test code = Monocytes) 5.5 2.0-12.0 [place] 394800-08-21 19:55:00 Test Item Value Reference Range Interpretation Comments Eosinophils (test code = 1.8 See_Comment [A utomated message] The Eosinophils) system which ge nerated this result tra nsmitted reference range : <=4.0. The reference r alvin was not used to int erpret this result as normal/abnormal . [facility] T[id number] 19:55:00 Test Item Value Reference Range Interpretation Comments Basophils (test code = 0.7 See_Comment [Aut omated message] The Basophils) system which ge nerated this result tra nsmitted reference range : <=1.0. The reference r alvin was not used to int erpret this result as normal/abnormal . [facility] TaylorAstxckhOTKGXMYUHK8812-86-57 19:55:00 Test Item Value Reference Range Interpretation Comments Basophils (test code = 0.7 See_Comment [Aut omated message] The Basophils) system which ge nerated this result tra nsmitted reference range : <=1.0. The reference r alvin was not used to int erpret this result as normal/abnormal . [facility] TaylorEmkitazMOVDEICOBJ6688-78-80 19:55:00 Test Item Value Reference Range Interpretation Comments Neutrophils # (test code = Neutrophils 6.6 1.5-8.1 #) [facility] TaylorHuvilqyGHMUPDUXDL0309-64-55 19:55:00 Test Item Value Reference Range Interpretation Comments Lymphocytes # (test code = Lymphocytes 2.1 1.0-5.5 #) [facility] TaylorDbwkevxCCWLWZTIJP3981-58-14 19:55:00 Test Item Value Reference Range Interpretation Comments Monocytes # (test code 0.5 See_Comment [Aut omated message] The = Monocytes #) system which generated this result tra nsmitted reference range : <=0.8. The reference r alvin was not used to int erpret this result as normal/abnormal . [facility] TaylorGpgjmmtQMRBVTVJCS9115-47-79 19:55:00 Test Item Value Reference Range Interpretation Comments Eosinophils # (test code 0.2 See_Comment [A utomated message] The = Eosinophils #) system whic h generated this result tra nsmitted reference range : <=0.5. The reference r alvin was not used to int erpret this result as normal/abnormal . [facility] TaylorJqvtvkpQZHUVMBJXG6732-92-52 19:55:00 Test Item Value Reference Range Interpretation Comments Basophils # (test code 0.1 See_Comment [Aut omated message] The = Basophils #) system which generated this result tra nsmitted reference range : <=0.2. The reference r alvin was not used to int erpret this result as normal/abnormal . [facility] FaxhxydZRGYWLEDND2407-54-89 19:55:00 Test Item Value Reference Range Interpretation Comments Coronavirus (COVID-19) Not Detected ARUN (test code = *NA*(01/16/20 2:55 PM) Coronavirus (COVID-19) ARUN) [facility] [employer] [id number] 19:55:00 Test Item Value Reference Range Interpretation Comments ABO/Rh (test code = ABO/Rh) B POS [facility] [employer] [id number] 19:55:00 Test Item Value Reference Range Interpretation Comments Antibody Scrn (test Negative (01/16/20 2:55 code = Antibody Scrn) PM) [facility] [employer]2020-08-21 19:55:00 Test Item Value Reference Range Interpretation Comments Glucose Lvl (test code = Glucose Lvl) 121 70-99 [facility] [employer]2020-08-21 19:55:00 Test Item Value Reference Range Interpretation Comments BUN (test code = BUN) 10 7-22 [facility] [employer]2020-08-21 19:55:00 Test Item Value Reference Range Interpretation Comments Creatinine Lvl (test code = Creatinine 0.62 0.50-1.40 Lvl) [facility] [employer]2020-08-21 19:55:00 Test Item Value Reference Range Interpretation Comments Sodium Lvl (test code = Sodium Lvl) 138 135-145 [facility] [employer]2020-08-21 19:55:00 Test Item Value Reference Range Interpretation Comments Potassium Lvl (test code = Potassium 3.5 3.5-5.1 Lvl) [employer]2020-08-21 19:55:00 Test Item Value Reference Range Interpretation Comments Chloride Lvl (test code = Chloride Lvl) 104 95-109 [facility] [employer] [id number] 19:55:00 Test Item Value Reference Range Interpretation Comments CO2 (test code = CO2) 27 24-32 [employer]2020-08-21 19:55:00 Test Item Value Reference Range Interpretation Comments Calcium Lvl (test code = Calcium Lvl) 8.9 8.5-10.5 [facility]2020-08-21 19:55:00 Test Item Value Reference Range Interpretation Comments AGAP (test code = AGAP) 10.5 10.0-20.0 [facility]2020-08-21 19:55:00 Test Item Value Reference Range Interpretation Comments eGFR (test code = eGFR) 116 [facility] TaylorVcowthtBBWSVNWIGZ8193-52-28 19:55:00 Test Item Value Reference Range Interpretation Comments WBC (test code = WBC) 9.5 3.7-10.4 [place] 394800-08-21 19:55:00 Test Item Value Reference Range Interpretation Comments RBC (test code = RBC) 4.69 4.20-5.40 [place] 394800-08-21 19:55:00 Test Item Value Reference Range Interpretation Comments Hgb (test code = Hgb) 12.3 12.0-16.0 [place] [address]-08-21 19:55:00 Test Item Value Reference Range Interpretation Comments Hct (test code = Hct) 37.7 36.0-48.0 [place] [address]-08-21 19:55:00 Test Item Value Reference Range Interpretation Comments MCV (test code = MCV) 80.4 80.0-98.0 [place] [address]-08-21 19:55:00 Test Item Value Reference Range Interpretation Comments MCH (test code = MCH) 26.2 pg 27.0-31.0 [place] 394800-08-21 19:55:00 Test Item Value Reference Range Interpretation Comments MCHC (test code = MCHC) 32.6 32.0-36.0 [place] [address]-08-21 19:55:00 Test Item Value Reference Range Interpretation Comments RDW (test code = RDW) 15.7 11.5-14.5 [place] 394800-08-21 19:55:00 Test Item Value Reference Range Interpretation Comments Platelet (test code = Platelet) 308 133-450 [facility] TaylorPjmnlwaQXHJJRFBIF9461-78-77 19:55:00 Test Item Value Reference Range Interpretation Comments MPV (test code = MPV) 7.1 7.4-10.4 [facility] TaylorSiaamhmJZWDMGKHJZ4836-68-76 19:55:00 Test Item Value Reference Range Interpretation Comments Segs (test code = Segs) 69.6 45.0-75.0 [facility] TaylorIvaaykkQYKDTAACOS3843-07-35 19:55:00 Test Item Value Reference Range Interpretation Comments Lymphocytes (test code = Lymphocytes) 22.4 20.0-40.0 [facility] TaylorYyirffmRMHFGRNFSP1918-39-91 19:55:00 Test Item Value Reference Range Interpretation Comments Monocytes (test code = Monocytes) 5.5 2.0-12.0 [facility] TaylorOzhvmctNPQPZLZFZA6628-85-43 19:55:00 Test Item Value Reference Range Interpretation Comments Eosinophils (test code = 1.8 See_Comment [A utomated message] The Eosinophils) system which ge nerated this result tra nsmitted reference range : <=4.0. The reference r alvin was not used to int erpret this result as normal/abnormal . [facility]
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
[2022-06-09 22:22] VITALS: TEMP 98.4
[2022-06-09 22:28] VITALS: BP 117/78; O2SAT 99
== END 2022-06-09 22:08 | disposition home or self-care (01) ==
LOC: ER 18:48
DX: S39.012A Strain of muscle, fascia and tendon of lower back, initial encounter (principal); S16.1XXA Strain of muscle, fascia and tendon at neck level, initial encounter
CPT/HCPCS: 72100; 72125; 99283

== ENCOUNTER 2023-06-23 18:36 | Inpatient (IN) | payer BC ==
[2023-06-23 20:25] LABS: Absolute Lymphocytes (CBC) 0.5 K/uL (0.7-4.9); MCV 77.1 fL (80-100)
[2023-06-23 20:28] LABS: Specific Gravity 1.029 (1.005-1.030); Urine Bacteria None Seen /HPF (<20); Urine Bilirubin NEGATIVE (Negative); Urine Blood Negative (Negative); Urine Clarity Clear (Clear); Urine Color Yellow (Yellow); Urine Glucose NEGATIVE (Negative); Urine Mucus 3+ /HPF (None Seen); Urine Protein 1+ (Negative); Urine Urobilinogen 2+ (Normal); Urine pH 6.5 (5.0-7.0)
[2023-06-23] MEDS ORDERED: MORPHINE 4 MG/ML SYR ONE (20:30)
[2023-06-23] MEDS ORDERED: ONDANSETRON 4 MG/2 ML VIAL ONE (20:30)
[2023-06-23] MEDS ORDERED: NA CHLORIDE 0.9% 1,000 ML ONE (20:31)
[2023-06-23 20:48] LABS: Hematocrit 37.1 % (36.0-45.0); Lymphocytes % 4.9 % (15.3-44.8); Platelets 239 thou/uL (152-406); RBC Red Blood Cell Count 4.82 M/uL (3.86-4.86)
[2023-06-23 20:49] LABS: Bilirubin Total 1.7 mg/dL (0.2-1.0); Potassium 3.6 mEq/L (3.5-5.1); Protein, Total 7.9 g/dL (6.4-8.2)
[2023-06-23 21:47] LABS: Blood Morphology Comment NOT SEEN (NOT SEEN); Platelet Estimate ADEQ; White Blood Cell Scan OK (OK)
--- NOTE | 2023-06-24 00:51 | ER ---
Nurse's Notes [facility] Name: Neris Ferguson Age: 37 yrs Sex: Female : 1985 Arrival Date: 06/23/2023 Time: 18:36 Bed 8 Private MD: Diagnosis: Abnormal results of liver function studies;Calculus of gallbladder without cholecystitis Presentation: 06/23 18:57 Chief complaint: Patient states: right sided abdominal pain that radiates to shoulder. as6 Coronavirus screen: At this time, the client does not indicate any symptoms associated with coronavirus-19. Ebola Screen: No symptoms or risks identified at this time. Initial Sepsis Screen: Does the patient meet any 2 criteria? No. Patient's initial sepsis screen is negative. Does the patient have a suspected source of infection? No. Patient's initial sepsis screen is negative. Risk Assessment: Do you want to hurt yourself or someone else? Patient reports no desire to harm self or others. Onset of symptoms was June 23, 2023. 18:57 Method Of Arrival: Ambulatory as6 18:57 Acuity: YOKO 3 as6 Triage Assessment: 19:50 General: Appears uncomfortable, Behavior is calm, cooperative, appropriate for age. la4 19:50 Neuro: No deficits noted. Level of Consciousness is awake, alert, obeys commands, la4 Oriented to person, place, time, Appropriate for age. Cardiovascular: Heart tones S1 S2 Capillary refill < 3 seconds is brisk fingers Patient's skin is warm and dry. Rhythm is sinus rhythm. Respiratory: Airway Breath sounds are clear. GI: Abdomen is flat, non-distended, Bowel sounds present X 4 quads. Reports lower abdominal pain, upper abdominal pain, nausea, vomiting. 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 - Social history:: Smoking status: Patient denies any tobacco usage or history of. Screenin:50 [facility] ED Fall Risk Assessment (Adult) History of falling in the last 3 months, la4 including since admission No falls in past 3 months (0 pts) Confusion or Disorientation No (0 pts) Intoxicated or Sedated No (0 pts) Impaired Gait No (0 pts) Mobility Assist Device Used No (0 pt) Altered Elimination No (0 pt) Score/Fall Risk Level 0 - 2 = Low Risk. Abuse screen: Denies threats or abuse. Denies injuries from another. Nutritional screening: No deficits noted. Tuberculosis screening: No symptoms or risk factors identified. Assessment: 19:50 Reassessment: Patient and/or family updated on plan of care and expected duration. Pain la4 level reassessed. PT assisted to bathroom. Urine collected. Blood drawn. Placed in gown and on cardiac, BP and SPO2 monitoring. No medication ordered at this time. Pt updated to plan of care. Jp MEADOWS notified of pt continued Right arm pain and abdominal pain. Pain: Complains of pain in right upper quadrant and left lower quadrant Pain does not radiate. Pain currently is 9 out of 10 on a pain scale. Quality of pain is described as sharp, Pain began 2 hours ago. Is continuous. Neuro: No deficits noted. Garcia Agitation-Sedation Scale (RASS): 0 - Alert and Calm Level of Consciousness is awake, alert, obeys commands, Oriented to person, place, time, situation, Appropriate for age. Cardiovascular: Reports burning in bilateral chest /chest pain that radiates to right shoulder and down right arm Heart tones S1 S2 Capillary refill < 3 seconds is brisk fingers Patient's skin is warm and dry. Rhythm is sinus rhythm. Respiratory: No deficits noted. Airway is patent Trachea midline Respiratory effort is even, unlabored, Respiratory pattern is regular, symmetrical, Breath sounds are clear bilaterally. GI: Abdomen is flat, non-distended, Bowel sounds present X 4 quads. Abd is soft Abdomen is tender to palpation in suprapubic area, right upper quadrant and left lower quadrant reports last BM this am to be large, soft, and normal in size. 20:43 Reassessment: No changes from previously documented assessment. Patient is alert, la4 oriented x 3, equal unlabored respirations, skin warm/dry/pink. CT called and notified pt completed Oral contrast at this time. Medicated for pain and IVF started to PIV, will continue to monitor. 21:40 Reassessment: Patient and/or family updated on plan of care and expected duration. Pain la4 level reassessed. Patient is alert, oriented x 3, equal unlabored respirations, skin warm/dry/pink. Reports pain has improved and notified that she will be taken to complete her CT at 1045pm. Verbalized understanding of plan of care Patient states feeling better. Vital Signs: 18:57 BP 123 / 66; Pulse 85; Resp 18 S; Temp 98.3(O); Pulse Ox 100% on R/A; Weight 68.04 kg as6 (R); Height 5 ft. 5 in. (R); Pain 10/10; 20:00 BP 110 / 67; Pulse 76; Resp 18; Pulse Ox 100% on R/A; la4 20:30 BP 127 / 87; Pulse 70; Resp 18; Pulse Ox 100% ; la4 21:39 BP 109 / 58; Pulse 82; Resp 18; Pulse Ox 100% on R/A; Pain 6/10; la4 22:00 BP 109 / 77; Pulse 70; Pulse Ox 100% on R/A; nw1 23:30 BP 93 / 71; Pulse 64; Pulse Ox 100% on R/A; nw1 06/24 00:00 BP 109 / 75; Pulse 65; Resp 16; Pulse Ox 99% ; la4 00:30 BP 96 / 65; Pulse 79; Resp 16; Pulse Ox 99% ; la4 01:00 BP 129 / 103; Pulse 88; Resp 18; Pulse Ox 100% ; la4 01:30 BP 124 / 76; Pulse 72; Resp 16; Pulse Ox 100% ; la4 02:00 BP 112 / 80; Pulse 82; Resp 16; Pulse Ox 100% ; Pain 8/10; la4 06/23 18:57 Body Mass Index 24.96 (68.04 kg, 165.1 cm) as6 06/23 18:57 Pain Scale: Adult as6 21:39 Pain Scale: Adult la4 02:00 Pain Scale: Adult la4 Vitals: 06/23 19:50 Cardiac Rhythm Assessment Regular Sinus rhythm. la4 Javier Coma Score: 19:50 Eye Response: spontaneous(4). Motor Response: obeys commands(6). Verbal Response: la4 oriented(5). Total: 15. 20:30 Eye Response: spontaneous(4). Motor Response: obeys commands(6). Verbal Response: la4 oriented(5). Total: 15. 21:39 Eye Response: spontaneous(4). Motor Response: obeys commands(6). Verbal Response: la4 oriented(5). Total: 15. 06/24 00:30 Eye Response: spontaneous(4). Motor Response: obeys commands(6). Verbal Response: la4 oriented(5). Total: 15. ED Course: 06/23 18:38 Patient arrived in ED. mr 18:58 Triage completed. as6 18:59 Arm band placed on. as6 19:06 Jp Castro PA is PHCP. cp 19:06 Scott Morales MD is Attending Physician. cp 19:16 Robin Farrell, RN is Primary Nurse. la4 19:16 Report received from Jolene UNDERWOOD. la4 19:28 Urinalysis w/ reflexes Sent. la4 19:28 Test, Urine Sent. la4 19:50 No apparent distress. Awaiting lab results, Awaiting: pain medication and reevaluation la4 from provider. 19:50 Patient has correct armband on for positive identification. Placed in gown. Bed in low la4 position. Call light in reach. Side rails up X2. Provided Education on: Plan of care, Labs drawn and pending. Client placed on continuous cardiac and pulse oximetry monitoring. NIBP monitoring applied. Notified Nurse Practitioner and/or Physician Sausage Meat Trimmer of c/o continued pain to right arm, chest and abdomen. 19:50 CBC with Diff Sent. la4 19:50 CMP Sent. la4 19:50 Lipase Sent. la4 19:50 No provider procedures requiring assistance completed. Inserted saline lock: 20 gauge la4 in right forearm, using aseptic technique. 20:15 Oral contrast given. mw3 20:45 Oral contrast reported to be complete. mw3 21:41 Provided Education on: Updated on plan of care. la4 23:01 CT Abd/Pelvis - PO and IV Contrast In Process Unspecified. EDMS 23:58 US Abdomen Limited: gallbladder In Process Unspecified. EDMS 06/24 00:50 Bala Ross MD is Hospitalizing Provider. cp 03:33 Patient admitted, IV remains in place. la4 Administered Medications: 06/23 20:42 Drug: morphine IVP or IV 4 mg IVP once over 4 mins Route: IVP; Infused Over: 4 mins; la4 Site: right forearm; 20:42 Drug: Ondansetron IVP 4 mg IVP once; over 2 minutes Route: IVP; Site: right forearm; la4 20:42 Drug: NS 0.9% IV 1000 ml IV at 1 bolus Per protocol; 1000 mL bolus Route: IV; Rate: 1 la4 bolus; Site: right forearm; 06/24 01:36 Drug: NS 0.9% IV 1000 ml IV at 1 bolus Per protocol; 1000 mL bolus Route: IV; Rate: 1 nw1 bolus; Site: right forearm; 01:36 Drug: Piperacillin-Tazobactam IVPB 3.375 grams IVPB once over 60 mins; (mix in NS 100 nw1 mL) Route: IVPB; Infused Over: 60 mins; Site: right forearm; 02:31 Drug: morphine IVP or IV 4 mg IVP once over 4 mins Route: IVP; Infused Over: 4 mins; la4 Site: right forearm; Medication: 06/23 19:50 VIS not applicable for this client. la4 Outcome: 06/24 00:50 Decision to Hospitalize by Provider. cp 03:28 Admitted to Med/surg room 219, Report called to CAS UNDERWOOD la4 03:28 Condition: improved 03:28 Instructed on the need for admit, Demonstrated understanding of instructions, follow-up care, 03:38 Patient left the ED. la4 Signatures: Dispatcher [employer] EDPR Marni Luna, Reg Reg Jp Jeronimo, ABDIEL PA Magui Lockhart mw3 Ruddy Mclaughlin RN RN as6 Robin Farrell RN RN la4 Komal Coombs RN RN nw1
--- NOTE | 2023-06-24 00:51 | EDPHYS ---
Physician Documentation [facility] Name: Neris Ferguson Age: 37 yrs Sex: Female : 1985 Arrival Date: 06/23/2023 Time: 18:36 Bed 8 Private MD: ED Physician Scott Morales HPI: 06/23 19:30 This 37 yrs old Female presents to ER via Ambulatory with complaints of cp Abdominal Pain. 19:30 The patient presents with abdominal pain in the epigastric area, in the right upper cp quadrant. Onset: The symptoms/episode began/occurred today, and became worse. The symptoms radiate to the right flank. Associated signs and symptoms: Pertinent positives: nausea, Pertinent negatives: chest pain, constipation, diarrhea, fever, shortness of breath, vomiting. The symptoms are described as constant. Severity of pain: in the emergency department the pain is actually worse moderately. 19:30 Patient reports HX of gastric sleeve surgery in 2019 by physician in [place]. 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 - Social history:: Smoking status: Patient denies any tobacco usage or history of. ROS: 19:35 Constitutional: Negative for body aches, chills, fever, poor PO intake, cp 19:35 Eyes: Negative for injury, pain, redness, and discharge, cp 19:35 ENT: Negative for drainage from ear(s), ear pain, sore throat, difficulty swallowing, difficulty handling secretions, 19:35 Cardiovascular: Negative for chest pain, palpitations, 19:35 Respiratory: Negative for cough, shortness of breath, wheezing, 19:35 Abdomen/GI: Positive for abdominal pain, nausea, Negative for vomiting, diarrhea, constipation, 19:35 Back: Positive for radiated pain, 19:35 : Negative for urinary symptoms, 19:35 Neuro: Negative for altered mental status, headache, syncope, weakness, 19:35 All other systems are negative, Exam: 19:40 Constitutional: The patient appears in no acute distress, alert, awake, cp non-diaphoretic, non-toxic, well developed, well nourished, uncomfortable, 19:40 Head/Face: Normocephalic, atraumatic. cp 19:40 Eyes: Periorbital structures: appear normal, Conjunctiva: normal, no exudate, no injection, Sclera: no appreciated abnormality, Lids and lashes: appear normal, bilaterally, 19:40 ENT: External ear(s): are unremarkable, Nose: is normal, Mouth: Lips: moist, Oral mucosa: pink and intact, moist, Posterior pharynx: is normal, airway is patent, no erythema, no exudate, 19:40 Neck: ROM/movement: is normal, is supple, without pain, no range of motions limitations, 19:40 Chest/axilla: Inspection: normal, 19:40 Cardiovascular: Rate: normal, Rhythm: regular, 19:40 Respiratory: the patient does not display signs of respiratory distress, Respirations: normal, no use of accessory muscles, no retractions, labored breathing, is not present, Breath sounds: are clear throughout, no decreased breath sounds, no stridor, no wheezing, 19:40 Abdomen/GI: Inspection: abdomen appears normal, Bowel sounds: active, all quadrants, Palpation: soft, in all quadrants, moderate abdominal tenderness, in the epigastric area and right upper quadrant, rebound tenderness, is not appreciated, involuntary guarding, is not appreciated, 19:40 Back: CVA tenderness, is absent, 19:40 Skin: no rash present. 19:40 Neuro: Orientation: to person, place \T\ time. Mentation: is normal, Motor: moves all fours, strength is normal, Vital Signs: 18:57 BP 123 / 66; Pulse 85; Resp 18 S; Temp 98.3(O); Pulse Ox 100% on R/A; Weight 68.04 kg as6 (R); Height 5 ft. 5 in. (R); Pain 10/10; 20:00 BP 110 / 67; Pulse 76; Resp 18; Pulse Ox 100% on R/A; la4 20:30 BP 127 / 87; Pulse 70; Resp 18; Pulse Ox 100% ; la4 21:39 BP 109 / 58; Pulse 82; Resp 18; Pulse Ox 100% on R/A; Pain 6/10; la4 22:00 BP 109 / 77; Pulse 70; Pulse Ox 100% on R/A; nw1 23:30 BP 93 / 71; Pulse 64; Pulse Ox 100% on R/A; nw1 06/24 00:00 BP 109 / 75; Pulse 65; Resp 16; Pulse Ox 99% ; la4 00:30 BP 96 / 65; Pulse 79; Resp 16; Pulse Ox 99% ; la4 01:00 BP 129 / 103; Pulse 88; Resp 18; Pulse Ox 100% ; la4 01:30 BP 124 / 76; Pulse 72; Resp 16; Pulse Ox 100% ; la4 02:00 BP 112 / 80; Pulse 82; Resp 16; Pulse Ox 100% ; Pain 8/10; la4 06/23 18:57 Body Mass Index 24.96 (68.04 kg, 165.1 cm) as6 06/23 18:57 Pain Scale: Adult as6 21:39 Pain Scale: Adult la4 02:00 Pain Scale: Adult la4 Javier Coma Score: 06/23 19:50 Eye Response: spontaneous(4). Motor Response: obeys commands(6). Verbal Response: la4 oriented(5). Total: 15. 20:30 Eye Response: spontaneous(4). Motor Response: obeys commands(6). Verbal Response: la4 oriented(5). Total: 15. 21:39 Eye Response: spontaneous(4). Motor Response: obeys commands(6). Verbal Response: la4 oriented(5). Total: 15. 06/24 00:30 Eye Response: spontaneous(4). Motor Response: obeys commands(6). Verbal Response: la4 oriented(5). Total: 15. MDM: 06/23 19:06 Patient medically screened. cp 06/24 01:00 Data reviewed: vital signs, nurses notes, lab test result(s), radiologic studies, CT cp scan, ultrasound. 01:00 Differential diagnosis: cholecystitis, Cholelithiasis, gastritis, gastroesophageal cp reflux disease, GI Bleed, non-specific abd pain, pancreatitis, Peptic Ulcer Disease, Perf. Duodenal Ulcer, Perf. Gastric Ulcer. Consideration of Admission/Observation Patient was admitted/placed on observation. Management of patient was discussed with the following: Continuous Improvement Lead: DR Ross will admit to his service after discussion. I considered the following discharge prescriptions or medication management in the emergency department Medications were administered in the Emergency Department. See MAR. Counseling: I had a detailed discussion with the patient and/or guardian regarding the historical points, exam findings, and any diagnostic results supporting the discharge/admit diagnosis, lab results, radiology results, the need for further work-up and treatment in the hospital. Response to treatment: the patient's symptoms have markedly improved after treatment, and as a result, I will admit patient. 06/23 19:15 Order name: CBC with Diff; Complete Time: 23:31 cp 06/23 19:15 Order name: CMP; Complete Time: 23:31 cp 06/23 23:31 Interpretation: Normal except: NA 135; GLUC 111; AST 537; ALT 382; ALK 133; BILIT 1.7; cp GLOB 3.9; A/G 1.0. 06/23 19:15 Order name: Lipase; Complete Time: 23:31 06/23 19:15 Order name: Test, Urine; Complete Time: 23:31 cp 06/23 19:15 Order name: Urinalysis w/ reflexes; Complete Time: 23:31 06/23 21:47 Order name: CBC Smear Scan; Complete Time: 23:31 [facility] 06/24 00:41 Order name: Lactate w/ 2H reflex if indic. 06/24 00:41 Order name: Blood Culture Adult (2) 06/24 02:40 Order name: Basic Metabolic Panel [facility] 06/24 02:40 Order name: Basic Metabolic Panel [facility] 06/24 02:40 Order name: Basic Metabolic Panel [facility] 06/24 02:40 Order name: CBC with Automated Diff [facility] 06/24 02:40 Order name: CBC with Automated Diff [facility] 06/24 02:40 Order name: CBC with Automated Diff [facility] 06/24 02:40 Order name: Lipase [facility] 06/24 02:40 Order name: Lipase [facility] 06/24 02:40 Order name: Lipase [facility] 06/24 02:40 Order name: Liver (Hepatic) Function [facility] 06/24 02:40 Order name: Liver (Hepatic) Function [facility] 06/24 02:40 Order name: Liver (Hepatic) Function [facility] 06/23 20:05 Order name: CT Abd/Pelvis - PO and IV Contrast 06/23 23:32 Order name: US Abdomen Limited: gallbladder 06/23 19:15 Order name: IV Saline Lock; Complete Time: 19:50 cp 06/23 19:15 Order name: Labs collected and sent; Complete Time: 19:50 cp 06/24 02:21 Order name: NPO; Complete Time: :27 cp Administered Medications: 06/23 20:42 Drug: morphine IVP or IV 4 mg IVP once over 4 mins Route: IVP; Infused Over: 4 mins; la4 Site: right forearm; 20:42 Drug: Ondansetron IVP 4 mg IVP once; over 2 minutes Route: IVP; Site: right forearm; la4 20:42 Drug: NS 0.9% IV 1000 ml IV at 1 bolus Per protocol; 1000 mL bolus Route: IV; Rate: 1 la4 bolus; Site: right forearm; 06/24 01:36 Drug: NS 0.9% IV 1000 ml IV at 1 bolus Per protocol; 1000 mL bolus Route: IV; Rate: 1 nw1 bolus; Site: right forearm; 01:36 Drug: Piperacillin-Tazobactam IVPB 3.375 grams IVPB once over 60 mins; (mix in NS 100 nw1 mL) Route: IVPB; Infused Over: 60 mins; Site: right forearm; 02:31 Drug: morphine IVP or IV 4 mg IVP once over 4 mins Route: IVP; Infused Over: 4 mins; la4 Site: right forearm; Disposition Summary: 06/24/23 00:50 Hospitalization Ordered Notes: Hospitalization Status: Inpatient Admission cp Provider: Bala Ross cp Location: Telemetry/[facility] (Inpatient) cp Condition: Stable cp Problem: new cp Symptoms: have improved cp Bed/Room Type: Standard Room Assignment: 219(06/24/23 02:51) rv1 Diagnosis - Abnormal results of liver function studies cp - Calculus of gallbladder without cholecystitis cp Forms: - Medication Reconciliation Form cp - SBAR form cp - Leadership Thank You Letter cp Addendum: 06/28/2023 20:01 Co-signature as Attending Physician, Scott Morales MD I reviewed the patient's care r t provided by the Advanced Practice Provider and agree with the diagnosis and treatment plan. Signatures: Dispatcher MedHo EDVT Jp Castro PA PA cp Ruddy Mclaughlin RN RN as6 Scott Morales MD MD rt Josefina Dixon rv1 Robin Farrell, RN RN la4 Komal Coombs RN RN nw1 Corrections: (The following items were deleted from the chart) 06/24 00:51 00:50 Calculus of gallbladder without cholecystitis with obstruction cp cp 02:51 00:50 cp rv1
[2023-06-24] MEDS ORDERED: NA CHLORIDE 0.9% 100 ML ONE (01:29)
[2023-06-24] MEDS ORDERED: NA CHLORIDE 0.9% 1,000 ML ONE (01:29)
[2023-06-24] MEDS ORDERED: PIPERACIL/TAZO 3.375 GM VIAL IV ONE (01:30)
[2023-06-24] MEDS ORDERED: MORPHINE 4 MG/ML SYR ONE (02:33)
[2023-06-24 03:55] VITALS: BMI 25.7
[2023-06-24] MEDS: D5 0.45 NS 1,000 ML IV SCH ×4 (04:15→23:25)
[2023-06-24 04:16] LABS: Absolute Lymphocytes (CBC) 0.6 K/uL (0.7-4.9); Hematocrit 32.4 % (36.0-45.0); Lymphocytes % 10.3 % (15.3-44.8); MCV 77.5 fL (80-100); MPV 7.6 fL (7.6-11.3); Platelets 243 thou/uL (152-406); RBC Red Blood Cell Count 4.18 M/uL (3.86-4.86)
[2023-06-24 04:45] LABS: Albumin 3.2 g/dL (3.4-5.0); Bilirubin Indirect, Calculated 0.7 mg/dL (0.2-0.8); Bilirubin Total 1.7 mg/dL (0.2-1.0); Potassium 3.6 mEq/L (3.5-5.1); Protein, Total 6.7 g/dL (6.4-8.2)
[2023-06-24] MEDS: ONDANSETRON 4 MG/2 ML VIAL IV PRN ×2 (06:00→12:10)
[2023-06-24] MEDS: MORPHINE 4 MG/ML SYR IV PRN ×2 (06:02→12:10)
[2023-06-24] MEDS: PIPER TAZO 3.375 GM in NA CHLORIDE 0.9% 100 ML IV SCH ×2 (09:04→19:44)
[2023-06-24] MEDS ORDERED: INFLUENZA VACCINE (for 6+ mo) 0.5 ML DOSE IMVAC ONE (13:00)
[2023-06-24] MEDS ORDERED: BUPIVACAINE 0.25% PF 30 ML VIAL ONE (14:31)
[2023-06-24] MEDS ORDERED: Ringers Lactate 1,000 ML IV ONE ×2 (15:01→18:48)
[2023-06-24] MEDS ORDERED: SUCCINYLCHOLINE 20 MG/ML (10 ML) IV ONE (15:10)
[2023-06-24] MEDS ORDERED: MIDAZOLAM HCL 2 MG/2 ML INJ ONE (15:12)
[2023-06-24] MEDS ORDERED: ROCURONIUM 50 MG/5 ML VIAL IV ONE ×2 (15:12→17:36)
[2023-06-24] MEDS ORDERED: FENTANYL CITR 100 MCG/2 ML ONE (15:12)
[2023-06-24] MEDS ORDERED: propofoL 200 MG/20 ML VIAL IV ONE (15:12)
--- NOTE | 2023-06-24 15:16 | P.HP ---
Date of Service: 06/24/23 PC: This 37-year-old female presented to the emergency room with severe right upper quadrant abdominal pain for diagnosis and treatment HPC: Patient has noticed that she has been having intermittent bouts of right upper quadrant abdominal pain. However this episode came on suddenly, hurt all across her chest and up into her shoulder. Pain was unrelenting, and almost felt like labor pain. PSHx: Previous gastric sleeve, G3 para 3 PMHx: Negative Social Hx: No known allergies Sys R: No cough, wheeze, shortness of breath. No chest pain or palpitations. Denies any urinary complaints O/E: Awake alert vital signs are stable HEENT: Not jaundiced Chest: Chest movement equal bilaterally Abd: Soft nontender at the moment [place]: Intact Data: Has documented gallstones Impression: Cholecystitis with cholelithiasis, biliary colic Plan: I will taken the operating room for laparoscopic possible open cholecystectomy with a cholangiogram. The risks of this procedure have been discussed. The possibility of bleeding, infection, injury to bile ducts blood vessels and intestines has been described. The possible need for an open and or further surgeries and procedures was discussed. She understands and wants us to proceed.
[2023-06-24] MEDS ORDERED: ONDANSETRON 4 MG/2 ML VIAL ONE (17:33)
[2023-06-24] MEDS ORDERED: dexAMETHasone 4 MG/ML VIAL ONE (17:34)
[2023-06-24] MEDS ORDERED: GLYCOPYRROLATE 0.2 MG/ML SYR ONE (18:18)
[2023-06-24] MEDS ORDERED: NEOSTIGMINE 1 MG/ML -10 ML VIAL ONE (18:23)
[2023-06-24] MEDS ORDERED: KETOROLAC 30 MG/ML INJ ONE (18:41)
[2023-06-24] MEDS ORDERED: HYDROMORPHONE HCL 1 MG/ML INJ ONE (18:41)
[2023-06-24] MEDS: FENTANYL CITR 100 MCG/2 ML ONE ×3 (18:48→19:06)
--- NOTE | 2023-06-24 19:07 | P.OP ---
Preoperative diagnosis: Cholecystitis with cholelithiasis Postoperative diagnosis: Probable cystitis with cholelithiasis, choledocholithi asis Primary procedure: Laparoscopic cholecystectomy with cholangiogram Secondary procedure: Operation of common bile duct with removal of stones Other procedure(s): Fluoroscopy Anesthesia: General Estimated blood loss: Less than 20 cc Specimen: 1 gallbladder and contents Operative Technique: Patient brought the operating room and placed supine on the table. After the induction of adequate general endotracheal anesthesia, the area of the abdomen was prepped with a DuraPrep solution, and she was draped in the usual aseptic manner. A subumbilical incision was made. This is brought down through the skin and subcutaneous tissue. The Visiport was now used to enter the peritoneal cavity and created pneumoperitoneum to approximately 12 mmHg. Under direct vision a 5 mm trocar was placed in the upper midline, and 2 other 5 mm trocars on the right lateral side of the abdomen with the patient placed in reverse Trendelenburg and the table turned to the left we were able to visualize the right upper quadrant. We could see a distended gallbladder with evidence of adhesions to the serosal surface. It was slightly injected indicating acute process. The adhesions were taken off the serosal surface of the gallbladder and were able to trace down towards Colin's pouch. A instrument was placed on Colin's pouch and applying lateral traction we were finally able to dissect out and expose this is cystic duct and artery. The cystic artery was clipped and divided in the usual manner. The cystic duct itself was noted to be quite generous in size. It was clip was placed between the gallbladder and the cystic duct. An opening was now made into the cystic duct to obtain a intraoperative cholangiogram. The cholangiogram showed a extrahepatic biliary tree but however there was no flow of contrast into the duodenum. At the distal end of the common bile duct we could see that there was a filling defect with no contrast going any further. At this point we decided to do a spyglass procedure. The attention was turned towards the cystic duct itself. A 6 mm dilator was placed into the duct. The duct was then dilated. Attention was then towards the toxic proximal part of portion where the procedure was repeated again. The choledocho scope was now passed down through the 5 mm trocar into the cystic duct. By gently flushing we were able to manipulate the choledocho scope into the common bile duct. On passing down through the common bile duct we could see at the very distal and a stone impacted just at the ampulla. We flushed, manipulated, used the basket extractor, and were preparing to set up for a ESWL on the stone. At this point the stone actually broke up into fragments. We were now able to basket some of these out. The other ones were able to push using the choledocho scope into the duodenum. We flushed the common bile duct and passed the scope full all the way down into the duodenum. While flushing we were able to gently retract the scope back out through the common bile duct up into the cystic duct and out. No stones were seen. The cholangioscope was removed. We got the cholangiogram catheter, and a repeat film showed good flow of contrast from the into the duodenum with no filling defects noted. At this point the classic cholangiocatheter was removed. 3 clips were placed on the distal portion of the cystic duct to close it. The cystic duct was now transect ed. The gallbladder was then dissected free from the liver bed, placed into an Endo Catch, and brought out through the umbilical trocar site it was interesting note the amount of stones that were seen inside the actual gallbladder itself. At this point the abdomen was inspected to ensure adequate hemostasis. The pneumoperitoneum was collapsed. The umbilical trocar site had been closed with a Endo Close and an absorbable suture. Dunlap were then applied to the skin. At the end of the procedure she was in a stable condition was sent to the recovery room. Needle sponge instrument count were correct. No drains were placed. Complications: None Transferred to: Recovery Room Condition: Good
--- NOTE | 2023-06-24 21:40 | RAD REPORT ---
EXAM DESCRIPTION: RAD - Cholangiogram Oper-Xray Or - 06/24/2023 9:31 pm CLINICAL HISTORY: LAP JASMEET WITH IOC WITH DR MESA COMPARISON: Abdomen Exam Limited dated 06/23/2023; Abdomen Pelvis W Contrast dated 06/23/2023 FINDINGS/IMPRESSION: Fourteen intraoperative fluoroscopic images were submitted demonstrating intrao perative cholangiogram. No radiologist was available for the procedure, nor will any image interpretation be provided. Please refer to the procedural report for additional details Fluoro time: 1.2 minutes Cumulative dose: 12.8 mGy
[2023-06-25] MEDS: PIPER TAZO 3.375 GM in NA CHLORIDE 0.9% 100 ML IV SCH ×3 (01:23→18:04)
[2023-06-25] MEDS: D5 0.45 NS 1,000 ML IV SCH ×4 (03:00→19:00)
[2023-06-25] MEDS: MORPHINE 4 MG/ML SYR IV PRN ×2 (05:24→21:06)
[2023-06-25] MEDS: ONDANSETRON 4 MG/2 ML VIAL IV PRN ×2 (05:29→21:06)
[2023-06-25 05:51] LABS: Absolute Lymphocytes (CBC) 0.6 K/uL (0.7-4.9); Hematocrit 27.9 % (36.0-45.0); Lymphocytes % 7.4 % (15.3-44.8); MCV 77.1 fL (80-100); MPV 7.7 fL (7.6-11.3); Platelets 221 thou/uL (152-406); RBC Red Blood Cell Count 3.62 M/uL (3.86-4.86)
[2023-06-25 06:26] LABS: Albumin 2.7 g/dL (3.4-5.0); Bilirubin Direct 0.3 mg/dL (0-0.2); Bilirubin Indirect, Calculated 0.3 mg/dL (0.2-0.8); Bilirubin Total 0.6 mg/dL (0.2-1.0); Potassium 3.2 mEq/L (3.5-5.1); Protein, Total 5.6 g/dL (6.4-8.2)
--- NOTE | 2023-06-25 10:28 | RAD REPORT ---
EXAM DESCRIPTION: US - Abdomen Exam Limited - 06/23/2023 11:57 pm CLINICAL HISTORY: The patient is 37 years old and is Female; ABD PAIN TECHNIQUE: Real-time ultrasound of the right upper quadrant with image documentation. COMPARISON: No relevant prior studies available. FINDINGS: Gallbladder: Multiple gallstones in the gallbladder. No gallbladder wall thickening. No pericholecystic fluid. Gallbladder wall measures 3 mm in thickness. Common bile duct: Common bile duct is normal. No stones. No dilation. IMPRESSION: Multiple gallstones in the gallbladder. No gallbladder wall thickening. No pericholecyst ic fluid. Electronically signed by: Bao Gonzales MD 06/24/2023 12:17 AM RELAY ASSOCIATE Due to temporary technical issues with the PACS/Fluency reporting system, reports are being signed by the in house radiologist without review as a courtesy to ensure prompt reporting. The interpreting r adiologist is fully responsible for the content of the report.
--- NOTE | 2023-06-25 10:29 | RAD REPORT ---
EXAM DESCRIPTION: CT - Abdomen Pelvis W Contrast - 06/24/2023 7:17 am W Contrast - 06/24/2023 7:17 am CLINICAL HISTORY: ABD PAIN TECHNIQUE: Axial computed tomography images of the abdomen and pelvis with intravenous contrast. S agittal and coronal reformatted images were created and reviewed. This CT exam was performed using one or more of the following dose reduction techniques: automated exposure control, adjustment of t he mA and/or kV according to patient size, and/or use of iterative reconstruction technique. COMPARISON: No relevant prior studies available. FINDINGS: Lung bases: Unremarkable. No mass. No consolidation. ABDOMEN: Liver: Unremarkable. No mass. Gallbladder and bile ducts: Unremarkable. No calcified stones. No ductal dilation. Pancreas: Unremarkable. No mass. No ductal dilation. Spleen: Unremarkable. No splenomegaly. Adrenals: Unremarkable. No mass. Kidneys and ureters: Unremarkable. No solid mass. No hydronephrosis. Stomach and bowel: Prior gastric sleeve. Distal ileal loops appear mildly thickened. No bowel obstr uction. PELVIS: Appendix: Normal caliber appendix. No findings to suggest acute appendicitis. Bladder: Unremarkable. No mass. Reproductive: The uterus is retroverted. No adnexal mass. ABDOMEN and PELVIS: Intraperitoneal space: Small amount of free fluid in the cul-de-sac. No free air. Bones/joints: Mild multilevel spondylosis. No acute fracture. No dislocation. Soft tissues: Unremarkable. Vasculature: Unremarkable. No abdominal aortic aneurysm. Lymph nodes: Unremarkable. No enlarged lymph nodes. IMPRESSION: 1. Findings which may reflect mild nonspecific enteritis. 2. Other findings as above. Electronically signed by: Willem Sanchez MD 06/23/2023 11:23 PM [facility] Due to temporary technical issues with the PACS/Fluency reporting system, reports are being signed by the in house radiologist without review as a courtesy to ensure prompt reporting. The interpreting r adiologist is fully responsible for the content of the report.
[2023-06-25] MEDS ORDERED: POTASSIUM CL SA 10 MEQ TAB PO ONE (11:35)
[2023-06-25] MEDS: NA CHLORIDE 0.9% 500 ML IV SCH ×2 (12:07→17:00)
--- NOTE | 2023-06-25 14:40 | P.PN ---
Date of Service: 06/25/23 S: Patient abdomen is sore, but her pain is initially present with is gone away. Feels better. Not able to keep much fluids down. Complaining of headache. N O: Abdomen is soft, wounds are clean, minimal bruising on noted on abdominal wall. Patient just looks exhausted. Has been trying to get up and walk, voiding on her own. Electrolytes essentially normal and improving. A: Well status post laparoscopic cholecystectomy with common bile ducts stone extraction P: Encourage p.o. intake, ambulate, incentive spirometry. Anticipate discharge in the a.m.
[2023-06-25] MEDS: ACETAMIN/CAFFEINE/BUTALB TAB PO PRN ×2 (15:18→21:01)
[2023-06-25 19:53] VITALS: O2SAT 99
[2023-06-26] MEDS: PIPER TAZO 3.375 GM in NA CHLORIDE 0.9% 100 ML IV SCH ×2 (01:55→09:12)
[2023-06-26] MEDS: D5 0.45 NS 1,000 ML IV SCH ×2 (01:56→10:19)
--- NOTE | 2023-06-26 13:31 | P.DS ---
Admission Date: 06/24/23 Discharge Date: 06/26/23 Disposition: ROUTINE DISCHARGE Discharge Condition: GOOD Reason for Admission: Acute postoperative abdominal pain Procedures: Laparoscopic cholecystectomy, intraoperative cholangiogram, exploration of common bile duct with stone removal Brief History of Present Illness: Patient presented to the emergency room with severe right upper quadrant abdominal pain, radiating to into her shoulder for diagnosis and treatment. Hospital Course: Patient was found to have severe pain in the right upper quadrant. On workup was found to have cholecystitis with cholelithiasis. She was brought to the operating room she underwent a laparoscopic cholecystectomy with a cholangiogram. The cholangiogram revealed the patient had a stone in her common bile duct [choledocholithiasis]. We were able to convert the procedure to include a spyglass. The scope was passed through the cystic duct into the common bile duct. We were able to dislodge the stone from her common bile duct and a completion cholangiogram demonstrated good flow of contrast into the duodenum. The patient was admitted postoperatively for observation and pain control. The following morning while she felt better she was still having nausea, considerable abdominal wall pain, and was slow to ambulate. Today she is up ambulating on her own, tolerating a diet, in much better spirits. She has good effort on incentive spirometry. Her pain is now controlled on oral medications. The patient is deemed fit for discharge. Vital Signs/Physical Exam: Temp Pulse Resp BP Pulse Ox 97.8 F 74 18 126/75 96 06/26/23 08:00 06/26/23 08:00 06/26/23 08:00 06/26/23 08:00 06/26/23 08:00 Laboratory Data at Discharge: WBC 8.10 thou/uL (4.3-10.9) 06/25/23 05:21 Hgb 9.4 g/dL (12.0-15.0) L D 06/25/23 05:21 Hct 27.9 % (36.0-45.0) L 06/25/23 05:21 Plt Count 221 thou/uL (152-406) 06/25/23 05:21 Sodium 139 mEq/L (136-145) 06/25/23 05:21 Potassium 3.2 mEq/L (3.5-5.1) L 06/25/23 05:21 BUN 3 mg/dL (7-18) L 06/25/23 05:21 Creatinine 0.55 mg/dL (0.55-1.02) 06/25/23 05:21 Glucose 151 mg/dL (74-106) H 06/25/23 05:21 Total Bilirubin 0.6 mg/dL (0.2-1.0) 06/25/23 05:21 AST 128 U/L (15-37) H 06/25/23 05:21 ALT 330 U/L (13-56) H 06/25/23 05:21 Alkaline Phosphatase 90 U/L (45-117) D 06/25/23 05:21 Lipase 28 U/L (13-75) 06/25/23 05:21 Home Medications: NK [No Home Meds] 06/24/23 Diet: Regular Activity: Ad denny
[2023-06-26 15:05] VITALS: BP 111/57; TEMP 97.9
== END 2023-06-26 14:59 | disposition home or self-care (01) | DRG 413 ==
LOC: ER 18:36 → ERHOLD 06-24 02:33 → 2ND 06-24 03:16
PROVIDERS: ADMIT Surgery; ATTEND Surgery
PROC: 0FC94ZZ Extirpation of Matter from Common Bile Duct, Percutaneous Endoscopic Approach (ICD-10-PCS; 2023-06-24)
PROC: BF121ZZ Fluoroscopy of Gallbladder using Low Osmolar Contrast (ICD-10-PCS; 2023-06-24)
PROC: 0FT44ZZ Resection of Gallbladder, Percutaneous Endoscopic Approach (ICD-10-PCS; principal; 2023-06-24 14:00)
DX: K80.60 Calculus of gallbladder and bile duct with cholecystitis, unspecified, without obstruction (principal); R94.5 Abnormal results of liver function studies; Z98.84 Bariatric surgery status
CPT/HCPCS: 36415; 74177; 74300; 76705; 80048; 80053; 80076; 81001; 81025; 83605; 83690; 85025; 87040; 88304; 94010; J1100; J1170; J2250; J2405; J2543; J2704; J2710; J3010; J7030; J7120; J7799; Q9967